=== PATIENT | male | born 2000 | race Caucasian/White ===

== ENCOUNTER 2021-05-16 17:43 | Emergency (ER) | payer OTHER ==
[~2021-05-16] VITALS: Ht 170.2 cm; Wt 71.2 kg
[2021-05-17] MEDS ORDERED: ceFAZolin SOD 2 GM in IV 1 EA IV ONE (01:05)
[2021-05-17] MEDS ORDERED: NORCO, ANEXSIA 5/325MG TABLET (HYDROcodone/ACETAMINOPHEN) PO ONE (01:05)
[2021-05-17 02:10] LABS: RSV AMPLIFICATION NEGATIVE (NEGATIVE)
[2021-05-17 06:56] VITALS: BP 123/65
== END 2021-05-17 06:58 | disposition short-term general hospital (02) ==
LOC: M ED 17:43
DX: S02.19XB Other fracture of base of skull, initial encounter for open fracture (principal); H05.231 Hemorrhage of right orbit; W06.XXXA Fall from bed, initial encounter; Y92.009 Unspecified place in unspecified non-institutional (private) residence as the place of occurrence of the external cause; Y93.84 Activity, sleeping; Y99.9 Unspecified external cause status
CPT/HCPCS: 70450; 70486; 87631; 96365; 99284; J0690

== ENCOUNTER 2021-10-09 13:24 | Emergency (ER) | payer OTHER ==
[~2021-10-09] VITALS: Ht 170.2 cm; Wt 75.0 kg
[2021-10-09 14:02] VITALS: BP 134/86
[2021-10-09 14:36] LABS: HEMATOCRIT 50.9 % (42.0-52.0); HEMOGLOBIN 17.5 g/dl (13.5-17.5); MEAN CORPUSCULAR HEMOGLOBIN 33.5 pg (27.0-33.0); MEAN CORPUSCULAR HGB CONC 34.4 g/dl (32.0-36.5); MEAN CORPUSCULAR VOLUME 97.3 fl (80.0-96.0); PLATELET COUNT, AUTOMATED 269 10^3/uL (150-450); RED BLOOD COUNT 5.23 10^6/uL (4.30-6.10); WHITE BLOOD COUNT 5.8 10^3/uL (4.0-10.0)
[2021-10-09 15:02] LABS: AMPHETAMINES LEVEL URINE NEGATIVE (NEGATIVE); BARBITURATES URINE NEGATIVE (NEGATIVE); BENZODIAZEPINES URINE NEGATIVE (NEGATIVE); CANNABINOIDS URINE NEGATIVE (NEGATIVE); COCAINE METABOLITE URINE NEGATIVE (NEGATIVE); METHADONE URINE NEGATIVE (NEGATIVE); OPIATES URINE NEGATIVE (NEGATIVE); PHENCYCLIDINE URINE NEGATIVE (NEGATIVE)
[2021-10-09 15:11] LABS: ACETAMINOPHEN LEVEL < 2.0 UG/ML (10.0-30.0); ALBUMIN 4.2 GM/DL (3.2-5.2); ALT/SGPT 33 U/L (12-78); BILIRUBIN,DIRECT 0.2 MG/DL (0.0-0.2); BILIRUBIN,TOTAL 0.4 MG/DL (0.2-1.0); BLOOD UREA NITROGEN 11 MG/DL (7-18); CALCIUM LEVEL 9.5 MG/DL (8.5-10.1); CARBON DIOXIDE LEVEL 29 MEQ/L (21-32); CHLORIDE LEVEL 109 MEQ/L (98-107); CREATININE FOR GFR 1.15 MG/DL (0.70-1.30); ETHYL ALCOHOL (ETHANOL) 0.212 % (0.000-0.010); GLOMERULAR FILTRATION RATE > 60.0 (>60); GLUCOSE, FASTING 94 MG/DL (70-100); POTASSIUM SERUM 4.3 MEQ/L (3.5-5.1); SALICYLATE LEVEL < 1.7 MG/DL (5.0-30.0); SODIUM LEVEL 144 MEQ/L (136-145); THYROID STIMULATING HORMONE 0.508 uIU/ML (0.358-3.740); TOTAL PROTEIN 8.2 GM/DL (6.4-8.2)
[2021-10-09] MEDS ORDERED: NICOTINE 21MG/24HR 1 EA TRANSDERMAL TD ONE (16:50)
== END 2021-10-09 23:17 | disposition home or self-care (01) ==
LOC: M ED 13:24
DX: Z13.39 Encounter for screening examination for other mental health and behavioral disorders (principal); F10.120 Alcohol abuse with intoxication, uncomplicated; F32.A Depression, unspecified; F17.200 Nicotine dependence, unspecified, uncomplicated

== ENCOUNTER 2022-01-11 05:45 | Emergency (ER) | payer OTHER ==
[~2022-01-11] VITALS: Ht 170.2 cm; Wt 72.1 kg
[2022-01-11 06:25] LABS: HEMATOCRIT 48.4 % (42.0-52.0); HEMOGLOBIN 16.2 g/dl (13.5-17.5); MEAN CORPUSCULAR HEMOGLOBIN 32.5 pg (27.0-33.0); MEAN CORPUSCULAR HGB CONC 33.5 g/dl (32.0-36.5); PLATELET COUNT, AUTOMATED 248 10^3/uL (150-450); RED BLOOD COUNT 4.99 10^6/uL (4.30-6.10); WHITE BLOOD COUNT 6.2 10^3/uL (4.0-10.0)
[2022-01-11 07:01] LABS: AMPHETAMINES LEVEL URINE NEGATIVE (NEGATIVE); BARBITURATES URINE NEGATIVE (NEGATIVE); BENZODIAZEPINES URINE NEGATIVE (NEGATIVE); BLOOD UREA NITROGEN 10 MG/DL (7-18); CANNABINOIDS URINE POSITIVE (NEGATIVE); COCAINE METABOLITE URINE NEGATIVE (NEGATIVE); CREATININE FOR GFR 1.05 MG/DL (0.70-1.30); GLUCOSE, FASTING 99 MG/DL (70-100); METHADONE URINE NEGATIVE (NEGATIVE); OPIATES URINE NEGATIVE (NEGATIVE); PHENCYCLIDINE URINE NEGATIVE (NEGATIVE)
[2022-01-11 07:02] LABS: ACETAMINOPHEN LEVEL < 2.0 UG/ML (10.0-30.0); ALBUMIN 4.4 GM/DL (3.2-5.2); ALT/SGPT 55 U/L (12-78); BILIRUBIN,DIRECT < 0.1 MG/DL (0.0-0.2); BILIRUBIN,TOTAL 0.2 MG/DL (0.2-1.0); CALCIUM LEVEL 9.7 MG/DL (8.5-10.1); CARBON DIOXIDE LEVEL 21 MEQ/L (21-32); CHLORIDE LEVEL 111 MEQ/L (98-107); ETHYL ALCOHOL (ETHANOL) 0.224 % (0.000-0.010); GLOMERULAR FILTRATION RATE > 60.0 (>60); POTASSIUM SERUM 4.3 MEQ/L (3.5-5.1); SALICYLATE LEVEL 1.8 MG/DL (5.0-30.0); SODIUM LEVEL 142 MEQ/L (136-145); TOTAL PROTEIN 7.9 GM/DL (6.4-8.2)
[2022-01-11 08:18] LABS: RSV AMPLIFICATION NEGATIVE (NEGATIVE)
[2022-01-11 14:16] VITALS: BP 125/78
== END 2022-01-11 14:31 | disposition home or self-care (01) ==
LOC: M ED 05:45
DX: F43.8 Other reactions to severe stress (principal); F10.129 Alcohol abuse with intoxication, unspecified; R45.851 Suicidal ideations; F17.200 Nicotine dependence, unspecified, uncomplicated; F32.A Depression, unspecified